=== PATIENT | male | born 1970 | race Two or more races ===

== ENCOUNTER 2020-01-07 12:34 | Emergency (ER) | payer MEDICAID, OTHER ==
[~2020-01-07] VITALS: Ht 160 cm; Wt 80.7 kg
[2020-01-07] MEDS ORDERED: diphenhdrAMINE HCL 50 MG/1 ML VL IM ONE (13:45)
[2020-01-07 14:14] LABS: Basophils # (auto) 0 10 ^3/uL (0-0.2); Basophils % (auto) 0.2 % (0.0-2.0); Eosinophils # (auto) 0 10 ^3/uL (0-0.8); Eosinophils % (auto) 0.5 % (0.0-7.0); Hematocrit 45.2 % (41.0-53.0); Hemoglobin 15.4 g/dL (13.5-17.5); Lymphocytes # (auto) 0.6 10 ^3/uL (0.4-5.4); Lymphocytes % (auto) 7.9 % (10.0-50.0); Mean Corpuscular Hemoglobin 32.1 pg (28.0-32.0); Mean Corpuscular Hgb Conc. 34.1 g/dL (32.0-36.0); Mean Corpuscular Volume 94.2 fL (80.0-100.0); Monocytes # (auto) 0.7 10 ^3/uL (0-1.3); Monocytes % (auto) 9.2 % (0.0-12.0); Neutrophils # (auto) 5.9 10 ^3/uL (1.6-8.6); Neutrophils % (auto) 82.2 % (37.0-80.0); Platelet Count (auto) 331 10^3/uL (140-450); Red Blood Cells 4.79 10^6/uL (4.5-5.90); Red Cell Distribution Width 14.1 % (11.8-14.3); White Blood Cell 7.2 10^3/uL (4.4-10.8)
[2020-01-07 14:19] LABS: Albumin 3.7 g/dL (3.4-5.0); Calcium 9.2 mg/dL (8.5-10.1); Chloride 106 mmol/L (98-107); Potassium 4.1 mmol/L (3.5-5.1); Sodium 138 mmol/L (136-145)
[2020-01-07 14:27] LABS: Alanine Aminotransferase 41 U/L (16-61); Alkaline Phosphatase 117 U/L (45-117); Anion Gap 4 (5-15); Aspartate Aminotransferase 26 U/L (15-37); BUN/Creatinine Ratio 13.1; Bilirubin, Total 0.7 mg/dL (0.2-1.0); Blood Urea Nitrogen 11 mg/dL (7-18); Carbon Dioxide 28 mmol/L (21-32); GFR African American 126 mL/min; GFR Non-African American 104 mL/min; Glucose 85 mg/dL (74-106); Total Protein 7.7 g/dL (6.4-8.2)
[2020-01-07 14:47] LABS: Alcohol, Urine < 3.0 mg/dL (0-10); Amphetamine Screen, Urine POSITIVE (NEGATIVE); Barbiturate Scree,Urine NEGATIVE (NEGATIVE); Benzodiazephine Screen, Urine NEGATIVE (NEGATIVE); Cannabinoid Screen, Urine NEGATIVE (NEGATIVE); Cocaine Screen, Urine NEGATIVE (NEGATIVE); Opiate Scree,Urine NEGATIVE (NEGATIVE); Phencyclidine Screen, Urine NEGATIVE (NEGATIVE)
[2020-01-07 14:59] VITALS: BP 156/78
== END 2020-01-07 14:55 | disposition home or self-care (01) ==
LOC: ER 12:34
DX: F41.1 Generalized anxiety disorder (principal); R00.2 Palpitations; F15.10 Other stimulant abuse, uncomplicated
CPT/HCPCS: 36415; 80053; 80307; 84484; 85025; 96372; 99283; J1200